=== PATIENT | male | born 1950 | race Caucasian/White ===

== ENCOUNTER → 2017-06-26 | Outpatient (CLI) | payer OTHER | LOC: BHCLAF 14:45 | PROVIDERS: ATTEND Internal Medicine Cardiovascular Disease | DX: I34.1 Nonrheumatic mitral (valve) prolapse (principal) | CPT/HCPCS: 93306-PO ==

== ENCOUNTER 2017-12-17 10:31 | Emergency (ER) | payer OTHER ==
--- NOTE | 2017-12-17 11:53 | EDPHY ---
H & P Time Seen by Provider: 12/17/17 10:46 HPI/ROS: The patient describes a right 4th finger injury from a mechanical fall in front of his home 2 days prior to arrival. He reports swelling an 7/10 pain to the distal phalanx with surgeon initially more like 5/10. Over the past 2 days the pain is gradually increased a bit and is now throbbing in nature. With associated swelling he came in today for evaluation finally. He explains that he tried ice and ibuprofen with partial improvement on previous days but has not taken any medications today. He is unable to flex or extend the distal phalanx of the affected finger. He waited this long because he does not like to see physicians he explains. He denies any other injuries except for a superficial abrasion to his left pretibial area from the fall. ROS: Neuro: No numbness or tingling the affected finger. No head Injury from the fall Musculoskeletal: No midline neck or back pain. No other extremity injuries. Integumentary: No lacerations abrasions. 5 point ROS is otherwise negative Past Medical/Surgical History: Hypertension Hypercholesterolemia Smoking Status: Heavy smoker Physical Exam: Physical Exam Vital signs are normal. General: No acute distress HEENT: Atraumatic. Eyes: Pupils equal and react to light. Extraocular motions are intact. Lungs: No respiratory distress. Cardiac: Brisk capillary refill is intact throughout the on the affected digit Extremities: Atraumatic normal except for right 4th finger Right 4th finger: Patient has swelling tenderness and mild erythema of the distal phalanx and the DIP joint. He is unable to flex or extend it. There is no malrotation of the finger when it is viewed on end. No swelling or tenderness to the PIP joint or the metacarpophalangeal joint Skin: No rash or pallor. There is a superficial abrasion without evidence of erythema or wound contamination to the left pretibial area Neuro: Alert with no sensorimotor deficits in the affected finger. Initial differential diagnosis: Finger fracture, finger dislocation, cellulitis Constitutional: Initial Vital Signs Temperature (C) 36.5 C 12/17/17 10:37 Heart Rate 73 12/17/17 10:37 Respiratory Rate 16 12/17/17 10:37 Blood Pressure 146/87 H 12/17/17 10:37 O2 Sat (%) 91 L 12/17/17 10:37 O2 Delivery Mode Room Air Allergies/Adverse Reactions: No Known Allergies Allergy (Unverified 12/17/17 10:37) Home Medications: Medication Instructions Recorded Cholesterol Med 06/01/13 Lisinopril 06/01/13 Meloxicam 7.5 mg PO DAILY #30 tablet 06/01/13 MDM/Departure - MDM Diagnostics: Finger x-rays: Dorsal dislocation of the distal phalanx without fracture by my interpretation Post reduction x-rays: Positive anatomical reduction without fracture by my interpretation Imaging Results: Imaging Impressions Finger X-Ray 12/17/17 10:53 Impression: Dorsal dislocation of the distal phalanx, right fourth finger at the DIP joint. Finger X-Ray 12/17/17 11:48 Impression: Interval reduction of dislocation with no visible fracture. Procedures: Digital block: After verbal consent, using a 50 50 mix of 0.5% Marcaine 2% plain lidocaine, 27 gauge needle, chlorhexidine scrub under sterile conditions- 3 injections were administered to the base of the affected finger, 8 mL with good effect. Patient tolerated this well. There were no complications. Closed reduction: After verbal consent using mild hyper extension followed by traction I was able to easily reduce the patient's dislocation. Patient tolerated this well without complications. He remained vascular intact post reduction. ED Course/Re-evaluation: Splinting: After closed reduction of placed the patient in a volar [place]um[place]am splint and mild flexion. I counseled him regarding finger dislocation . Discussion: Patient with the IP finger dislocation with delayed presentation but without evidence of significant neurovascular compromise or other complicating factors. Appreciate any associated fracture. He will follow up with Dr. BuitragoKyen-op-[facility] hand surgeon for recheck and further planning in terms of splinting and rehab for the finger. Patient will ice the finger and use ibuprofen and/or Tylenol if needed for discomfort. He understands need to return emergency department should he develop any significant worsening despite the treatment plan - Depart Disposition: Home, Routine, Self-Care Clinical Impression: Finger dislocation Qualifiers: Encounter type: initial encounter Qualified Code(s): S63.259A - Unspecified dislocation of unspecified finger, initial encounter Condition: Good Instructions: Finger Dislocation (ED) Additional Instructions: Diagnosis: Finger dislocation-reduced He received a digital block today with lidocaine and Marcaine followed by a closed reduction procedure. Plan: Finger splint Typically the anesthesia last for 2-6 hours. The gentleman cautious with her finger few remove the splint wash her hands. Then replace the splint and tape. Tylenol and/or ibuprofen for discomfort if needed. Call Dr. Priest-hand specialist arrange follow-up appointment for a recheck and further treatment plan sometime within the next 3-7 days. Referrals: Ramon Linton MD [Primary Care Provider] - As per Instructions Melodie Priest MD [Medical Doctor] - As per Instructions
[2017-12-17 12:12] VITALS: BP 128/80
== END 2017-12-17 12:12 | disposition home or self-care (01) ==
LOC: CED 10:31
PROC: 0RSWXZZ Reposition Right Finger Phalangeal Joint, External Approach (ICD-10-PCS; principal; 2017-12-17)
DX: S63.294A Dislocation of distal interphalangeal joint of right ring finger, initial encounter (principal); F17.200 Nicotine dependence, unspecified, uncomplicated; I10 Essential (primary) hypertension; W18.39XA Other fall on same level, initial encounter; Y92.009 Unspecified place in unspecified non-institutional (private) residence as the place of occurrence of the external cause
CPT/HCPCS: 73140-PO

== ENCOUNTER → 2018-02-18 | Outpatient (CLI) | payer OTHER | LOC: BHCLAF 11:00 | PROVIDERS: ATTEND Internal Medicine Cardiovascular Disease | DX: I34.0 Nonrheumatic mitral (valve) insufficiency (principal); I34.1 Nonrheumatic mitral (valve) prolapse; I10 Essential (primary) hypertension; E78.5 Hyperlipidemia, unspecified | CPT/HCPCS: 93005-PO ==

== ENCOUNTER 2018-08-08 09:08 | Emergency (ER) | payer OTHER ==
[2018-08-08 09:20] VITALS: BP 150/92
[2018-08-08] MEDS ORDERED: TRIAMCINOLONE ACETONIDE 200 MG/5 ML MDV IM ONE (09:30)
[2018-08-08] MEDS ORDERED: TRIAMCINOLONE ACETONIDE 40 MG/ML VIAL ONE (09:31)
--- NOTE | 2018-08-08 09:50 | EDPHY ---
H & P Time Seen by Provider: 08/08/18 09:09 HPI/ROS: This patient has long history of gout with 2 prior episodes of right knee effusions that were drained with some relief. He reports compliance with his allopurinol and does not think he has had anymore protein than usual. He rarely has alcohol and has not had any recently. He explains that his knee became inflamed over the weekend with quite a bit of swelling overnight and now reports stiffness, achy pain 8/10 with symptoms of feel identical to prior gout flares. He does report that he had a minor mechanical fall than [address] at home on Thursday prior to the symptoms with a mild knee abrasion to the left knee but no significant injury to the right knee. He reports no other complaints. ROS: Constitutional: No fevers. Musculoskeletal: No other joint injuries or swelling. He denies any feeling of instability to the affected knee. No crepitus. No patellar pain. Integumentary: No significant erythema or rash per patient. 5 point review of symptoms is performed and otherwise negative with exception of pertinent positives and negatives listed in HPI and ROS Past Medical/Surgical History: Gout Smoking Status: Heavy smoker Physical Exam: Physical Exam Vital signs are normal. General: No acute distress HEENT: Atraumatic. Eyes: Pupils equal and react to light. Extraocular motions are intact. Cardiac: Brisk capillary refill is intact throughout. Pulses are 2+ and symmetric in the affected extremity. Musculoskeletal: Extremities atraumatic normal except for the right knee Right knee: Patient has a moderate knee effusion with mild tenderness at the area of swelling but no posterior tenderness, patellar tenderness, no abrasion, in no instability on ligamentous stress testing with Iker's, varus or valgus stress and no pain with those maneuvers. Skin: No rash or pallor. Neuro: Alert and oriented x3 with no sensorimotor deficits in the affected extremity. Initial differential diagnosis: Gout, pseudogout, osteoarthritis with inflammatory fusion, doubt septic joint Constitutional: Initial Vital Signs Temperature (C) 36.4 C 08/08/18 09:17 Heart Rate 84 08/08/18 09:17 Respiratory Rate 18 08/08/18 09:17 Blood Pressure 150/92 H 08/08/18 09:17 O2 Sat (%) 95 08/08/18 09:17 O2 Delivery Mode Room Air Allergies/Adverse Reactions: No Known Allergies Allergy (Unverified 08/08/18 09:17) Home Medications: Medication Instructions Recorded Allopurinol 08/08/18 Amlodipine Besylate 08/08/18 Lovastatin 08/08/18 MDM/Departure - [facility] Procedures: Procedure: Arthrocentesis. Indication: [Evaluation for the possibility of septic joint/treatment of potential gout] Risks, benefits, alternatives of the procedure were discussed with the patient and consent obtained. The patient was prepped and draped in the usual sterile fashion over the right knee joint. Local anesthesia was provided with 1% lidocaine - 5 mL to the lateral aspect of the knee with 27 gauge needle with good effect. The joint space was entered with an 18 gauge needle with 50 mL of yellow semi translucent fluid obtained. There were no complications. The procedure was performed by myself. A bandage was then placed by our tech and the patient is placed in Rayshawn wrap. ED Course/Re-evaluation: The patient declined knee x-rays understanding that we could potentially miss fracture or significant osteoarthritis and accepting that risk. He is placed in Rayshawn wrap after arthrocentesis I counseled regarding gout care. Patient felt some relief of his knee discomfort after the procedure. Knee aspirate is sent to the lab for cell count and crystal analysis. Discussion: Findings are consistent with acute gout flare treated with steroid and Marcaine injection to the knee. I counseled patient regarding this - Depart Disposition: Home, Routine, Self-Care Clinical Impression: Knee effusion, right Gout attack Qualifiers: Gout site: knee Gout etiology: other secondary cause Laterality: right Qualified Code(s): M10.461 - Other secondary gout, right knee Condition: Good Instructions: Low Purine Diet (ED), Gout (ED), Swollen Knee Joint (ED) Additional Instructions: Diagnose doses: 1. Knee effusion 2. Acute gout attack Plan: Decreased protein intake Drink plenty fluids Today you had an arthrocentesis procedure with removal of 50 mL of gouty appearing fluid. I then injected your knee with 9 mL of Marcaine 0.5% and 40 mg of Kenalog steroid. You should not have another steroid injection for the next 6 months to your knee. Rayshawn wrap for comfort Continue your allopurinol Follow-up with primary care physician for any ongoing symptoms Return for any significant worsening despite the treatment plan. Referrals: Ramon Linton MD [Primary Care Provider] - As per Instructions
== END 2018-08-08 10:00 | disposition home or self-care (01) ==
LOC: CED 09:08
PROC: 0M9N3ZZ Drainage of Right Knee Bursa and Ligament, Percutaneous Approach (ICD-10-PCS; principal; 2018-08-08)
DX: M25.461 Effusion, right knee (principal); M10.461 Other secondary gout, right knee
CPT/HCPCS: 20611; 96372; 99284; J3301